=== PATIENT | female | born 1975 | race Caucasian/White ===

== ENCOUNTER → 2017-07-04 | Outpatient (CLI) | payer OTHER ==
--- NOTE | 2017-07-04 18:32 | KCIC ---
Bilateral digital screening mammograms: Reason for examination: Routine screening. Comparison is made to previous study dated 09/02/2014. The skin and nipples show no abnormalities. No abnormal axillary lymph nodes are seen. The breast parenchyma shows scattered fibroglandular density. (Breast density: Category B.) There is a new 11 mm nodular density in the lower inner quadrant of the right breast at approximately the 4:30 position 4 cm from the nipple. Further evaluation with ultrasound is recommended. There are no other new dominant masses, suspicious calcifications or architectural distortions. Impression: New 11 mm nodular parenchymal density in the lower inner quadrant of the right breast at approximately the 4:30 position 4 cm from the nipple. Further evaluation with ultrasound is recommended. BI-RADS Category 0: Incomplete. Ultrasound follow-up is recommended. "Our facility is accredited by the [employer] Mammography Program." This patient's information has been entered into a reminder system for the patient to be notified with the results of her examination and a target date for the next mammogram. Electronically signed by: Deborah Paz MD (07/04/2017 6:28 PM) [id number]
== END | disposition home or self-care (01) ==
LOC: KCIC MAMMO 17:10
PROVIDERS: ATTEND Obstetrics & Gynecology
DX: Z12.31 Encounter for screening mammogram for malignant neoplasm of breast (principal)
CPT/HCPCS: G0202; 77067

== ENCOUNTER → 2017-07-07 | Outpatient (CLI) | payer OTHER ==
--- NOTE | 2017-07-07 15:23 | RAD ---
Right breast ultrasound, 07/07/2017: History: Abnormal mammogram The 07/04/2017 study demonstrated a new density in the right breast at approximately the 4:00 location. A targeted ultrasound exam of that region was performed. A hypoechoic lesion is identified sonographically at the 4:00 location, approximately 3 cm in the nipple. It demonstrates angulated irregular margins. There is no significant posterior acoustic enhancement or shadowing. It measures approximately 12-13 mm in greatest diameter. This appears to correspond to the mammographic abnormality. The findings are suspicious for malignancy. IMPRESSION: Small mass at the 4:00 location in the right breast suspicious for malignancy. Ultrasound-guided biopsy is suggested for further evaluation. BI-RADS 4-suspicious abnormality. Note: The technologist notified the patient of the recommendation for biopsy at the time of the examination. The patient will follow up with the ordering physician.
== END | disposition home or self-care (01) ==
LOC: KCIC US 14:26
PROVIDERS: ATTEND Obstetrics & Gynecology
DX: N63 Unspecified lump in breast (principal); R92.8 Other abnormal and inconclusive findings on diagnostic imaging of breast
CPT/HCPCS: 76641

== ENCOUNTER → 2017-07-18 | Outpatient (CLI) | payer OTHER ==
[~2017-07-18] VITALS: Ht 163.8 cm; Wt 75.7 kg
[~2017-07-18] MED LIST: ALPR0.25 PO; ESCITALOPRAM OX10 MG PO; LEVO125T5 PO; MELA3TAB2 PO; NORE-96 PO; TRAZ150T49 PO
[2017-07-18 13:12] VITALS: BP 113/65
--- NOTE | 2017-07-18 14:58 | RAD ---
Exam performed: Ultrasound-guided right breast biopsy and diagnostic right mammogram. History: Abnormal right breast mammogram and ultrasound. Date of service: 07/18/17. Comparison: Screening bilateral mammogram from 07/04/17 and several previous mammograms dating back to 07/27/12. Discussion: Procedure was obtained the patient and informed consent was obtained. Preliminary scanning demonstrated the irregular suspicious lesion in the right breast at 4:00 position. Using standard aseptic precautions, 10 cc of 1% lidocaine was infiltrated into the skin and deeper tissues. Thereafter a 14-gauge biopsy needle was introduced from the premarked site using a 13-gauge introducer needle. 4 biopsy specimens were taken and collected in formalin. Thereafter a biopsy clip was placed. Postprocedure scanning demonstrated no evidence of hematoma formation. Patient was then sent for a diagnostic right mammogram for confirmation of clip placement. Impression: 1. Technically successful right breast biopsy. Pathology is pending. End impression. Diagnostic right mammogram: CC and MLO views of the right breast are obtained which demonstrate placement of biopsy clip in the near vicinity of previously seen mammographic abnormality. Impression: 1. Adequate placement of the biopsy clip adjacent to the abnormality
--- NOTE | 2017-07-20 08:48 | PATHOLOGY ---
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 COMMENT: Sections of the right breast mass needle biopsy reveal an invasive mammary carcinoma. The tumor cells are present in solid nests and cords and show focal tubule formation. The tumor is associated with a chronically inflamed reactive desmoplastic stroma. The tumor shows focal moderate nuclear atypia. There is mild to focal moderate mitotic activity. The tumor measures up to 0.7 cm in greatest dimension on the glass slide. There are no tumor associated calcifications. There is no lymphovascular tumor invasion. A limited panel of immunoperoxidase stains is obtained and yields the following results: AE1/AE3: Tumor cells positive. E-cadherin: Tumor cells positive. The morphologic and immunophenotypic findings are supportive of the diagnosis of an invasive ductal carcinoma with focal lobular features. The case is also examined by Dr. Cui, who concurs with the diagnosis. Breast prognostic studies will be obtained, the results of which will be reported separately. (JPM:mgr; 07/19/2017) Special Stains Performed: Immunoperoxidase stains for AE1/AE3, E-cadherin. REPORT ELECTRONICALLY SIGNED BY: Daniel Bergeron M.D. DATE/TIME: 07/20/2017 08:47 * * * * * * * * GROSS PATHOLOGY: Received in formalin labeled "Dulce Maria Abbott, right breast," are multiple needle cores of yellow-vaughan fibrofatty tissue measuring 1.0 x 0.8 x 0.3 cm in aggregate dimensions. The tissue is submitted in its entirety in cassette A1. The cold ischemic time is 5 minutes. The total formalin fixation time is 7 hours and 50 minutes. (JPM; 07/18/17) INITIAL CPT CODE(S): A; 09591, 12790, 78934, 14565(4) Professional services performed under supervision of [facility] Correspondence Representative at [address] [place] [id number], [place] [address]. Technical services performed under supervision of [facility] Correspondence Representative at [address] [place] [id number], [address], [place] [address]. SPECIMEN(S) RECEIVED: A.Right breast mass CLINICAL HISTORY: Right breast mass PATIENT: DULCE MARIA ABBOTT /AGE: 201/13/1975 (Age: 42) PATIENT #: [id number] ALT CASE #: SPECIMEN COLLECTION DATE: 07/18/2017 SPECIMEN RECEIVED DATE: 07/18/2017 [facility] - [id number] [place] [address] - PHONE: [phone] * * * END OF REPORT * * *
== END | disposition home or self-care (01) ==
LOC: US 12:23
PROVIDERS: ATTEND Obstetrics & Gynecology
DX: R92.8 Other abnormal and inconclusive findings on diagnostic imaging of breast (principal)
CPT/HCPCS: 19081; 76942; C1713; G0206; 88305; 88341; 88342; 88361; 77065